=== PATIENT | male | born 1990 | race Two or more races ===

== ENCOUNTER 2020-10-10 14:46 | Emergency (ER) | payer OTHER ==
[~2020-10-10] VITALS: Ht 172.7 cm; Wt 70.3 kg
== END 2020-10-10 17:57 | disposition home or self-care (01) ==
LOC: ER 14:46
DX: M51.16 Intervertebral disc disorders with radiculopathy, lumbar region (principal); M51.17 Intervertebral disc disorders with radiculopathy, lumbosacral region

== ENCOUNTER 2022-03-20 20:49 | Emergency (ER) | payer OTHER ==
[~2022-03-20] VITALS: Ht 170.2 cm; Wt 74.8 kg
== END 2022-03-21 01:15 | disposition home or self-care (01) ==
LOC: ER 20:49
DX: S63.501A Unspecified sprain of right wrist, initial encounter (principal); W18.30XA Fall on same level, unspecified, initial encounter; Y93.89 Activity, other specified; Y92.89 Other specified places as the place of occurrence of the external cause; Y99.9 Unspecified external cause status